=== PATIENT | male | born 1965 | race Caucasian/White ===

== ENCOUNTER 2017-04-22 05:50 | Inpatient (IN) | payer MEDICAID ==
[2017-04-21 12:10] LABS: HEMATOCRIT 50.3 % (42.0-54.0); HEMOGLOBIN 17.3 g/dL (13.5-17.5); MCH 32.9 pg (26.0-34.0); MCHC 34.4 g/dL (31.0-37.0); MCV 95.6 fL (80.0-100.0); MEAN PLATELET VOLUME 9.7 fL (7.4-10.4); RBC 5.26 10x6/uL (4.20-6.10); RDW 12.2 % (11.5-14.5); WBC 6.1 10x3/uL (4.8-10.8)
[2017-04-21 12:16] LABS: ANION GAP 10.3 mmol/L (8-16); CALCIUM 9.2 mg/dL (8.5-10.1); CREATININE - SERUM 1.8 mg/dL (0.6-1.3); POTASSIUM - SERUM 4.3 mmol/L (3.5-5.1)
[2017-04-22] VITALS (16 sets, daily range): BP systolic 112–149; BP diastolic 31–79; BMI 24.4; BMI 26.4
[~2017-04-22 05:50] MED LIST: AMBIEN10 MG PO; AVODART0.5 MG PO; CIALIS5 MG PO; FLOMAX0.4 MG PO; HYDROCODONE-APA1 TAB PO; NEXIUM40 MG PO; NOLVADEX10 M1 PO; PROSCAR5 MG PO; ULTRAM50 MG PO; ZOLOFT50 MG PO
--- NOTE | 2017-04-22 11:41 | NUR ---
TRANSFER OF CARE TO DARBY [facility]ALCON AT 1143
--- NOTE | 2017-04-22 11:44 | NUR ---
TAKING OVER PT FROM [facility] IN STABLE CONDITION
--- NOTE | 2017-04-22 17:25 | NUR ---
DR. MAYERS HERE IN TO SEE PATIENT.
--- NOTE | 2017-04-22 18:25 | NUR ---
PATIENT UP TO BATHROOM, DENIES ANY DIZZINESS, AND TOLERATED WELL. PATIENT CONSUMED SONIC MEAL WITHOUT ANY ISSUES.
--- NOTE | 2017-04-22 19:00 | NUR ---
PT AOX4, NO C/O PAIN AT THIS TIME. RIGHT NECK INCISION WITH NO OOZING OR BLEEDING PRESENT. SECURITY ENGINEER EQUAL, TONGUE MIDLINE. RESPIRATIONS EVEN AND UNLABORED. LUNG SOUNDS CLEAR THROUGHOUT. S1S2 HEARD, PERIPHERAL PULSES PRESENT. BOWEL SOUNDS ACTIVE IN ALL QUADRANTS. URINAL AT BEDSIDE. PT REPOSITIONS SELF INDEPENDENTLY WITH NO DIFFICULTY. VSS. DENIES NEEDS AT THIS TIME. CALL LIGHT AND BEDSIDE TABLE WITHIN PT REACH. CPOC.
--- NOTE | 2017-04-22 21:00 | NUR ---
FAMILY AT BEDSIDE, QUESTIONS ANSWERED. VSS, NO C/O PAIN AT THIS TIME. RIGHT NECK INCISION WITH NO OOZING OR BLEEDING. PT DENIES NEEDS AT THIS TIME. CALL LIGHT AND BEDSIDE TABLE WITHIN PT REACH. CPOC.
--- NOTE | 2017-04-22 23:00 | NUR ---
REASSESSMENT COMPLETE, SEE FLOWSHEET FOR ALL FINDINGS. NO ACUTE CHANGES NOTED AT THIS TIME. VSS, NO C/O PAIN. REPOSITIONS SELF INDEPENDENTLY. NO S/S OF DISTRESS NOTED. DENIES NEEDS. CALL LIGHT AND BEDSIDE TABLE WITHIN PT REACH. CPOC.
[2017-04-23] VITALS (8 sets, daily range): BP systolic 124–147; BP diastolic 59–88
--- NOTE | 2017-04-23 03:00 | NUR ---
REASSESSMENT COMPLETE, SEE FLOWSHEET FOR ALL FINDINGS. NO NEW CHANGES AT THIS TIME. PT RESTING QUIETLY WITH VSS, NO C/O PAIN. DENIES NEEDS. CALL LIGHT AND BEDSIDE TABLE WITHIN PT REACH. CPOC.
--- NOTE | 2017-04-23 11:00 | NUR ---
PIV DC'D. DISCHARGE PAPERWORK SIGNED. INSTUCTIONS GIVEN FOR DISCHARGE AND HOW TO CARE FOR WOUND. WALKED TO EXIT WITH FAMILY. DICHARGED HOME.
--- NOTE | 2017-04-26 10:55 | OP ---
PATIENT NAME: GONZALEZ DENNY MEDICAL RECORD: [id number] :69 LOCATION:[facility] ADMISSION DATE:04/22/17 SURGEON: BIJAL JUNG MD DATE OF OPERATION: 04/22/2017 PREOPERATIVE DIAGNOSES: 1. Severe degenerative disc disease at C5-C6 with right C6 radiculopathy. 2. Osteophytes at C5-C6. PROCEDURE: Anterior cervical discectomy with removal of osteophytes at C5-C6, placement of LDR artificial cervical disc at C5-C6. SURGEON: Bijal Jung MD DESCRIPTION AND TECHNIQUE: After induction of general endotracheal anesthesia, the patient was positioned supine on the operating table. Cervical spine was in a neutral position. The neck was prepped and draped in usual sterile fashion. A freer and Fluoro was used to localize the C5-C6 interspace. A transverse skin incision was carried out from the midline to the sternocleidomastoid muscle. The platysma was divided with Bovie cautery. Using blunt and sharp dissection with Metzenbaum scissors, I proceeded in the avascular plane medial to the carotid sheath. The C5-C6 interspace was confirmed with fluoroscopic x-ray and spinal needle. A self-retaining retractor was placed deep to the longus colli muscles. Lenox distracting pins were placed at the bodies of C5 and C6. Flow was confirmed with fluoroscopic x-ray. Osteophytes were removed anteriorly with Adson rongeurs. Following this, the disc space was incised under distraction. Disc material was removed with curettes and pituitary rongeurs. The posterior longitudinal ligament was removed with Cloward rongeurs. The osteophytes were drilled away posteriorly in the posterior third of the disc space. Foraminotomy was carried out on both sides with #2 Cloward. The posterior longitudinal ligament was removed. The dura was decompressed well. Meticulous hemostasis was maintained throughout the wound. Appropriate sized LDR artificial disc was placed in the disc space under distraction. The receiver stocker was released from the artificial disc. Good position of the hardware was confirmed on fluoroscopic x-ray. Meticulous hemostasis was maintained throughout the wound. The retractors were removed. The platysma and subdermal layer were closed with interrupted 3-0 Vicryl suture. The skin was closed with Steri-Strips and benzoin. A sterile dressing was applied to the wound. The patient was awakened in good condition and taken to recovery. All counts were reported as correct. Estimated blood loss was minimal. TRANSINT:[id number] Voice Confirmation ID: [id number] DOCUMENT ID: [id number] BIJAL JUNG MD at 1055 CC: [id number] DICTATION DATE: 04/22/17 1411 GRINDER OPERATOR EXTERNAL TOOL: 04/22/17 1428 DIS IN 04/23/17 [place] [id number]
--- NOTE | 2017-05-31 13:26 | DS ---
PATIENT:GONZALEZ DENNY :69 MEDICAL RECORD: [id number] DISCHARGE SUMMARY ADMISSION DATE: 04/22/17 DISCHARGE DATE: 04/23/17 HOSPITAL COURSE: The patient was admitted on the day of surgery for artificial cervical disc at C5-C6. He tolerated the procedure well, was observed overnight and discharged home on the following morning on a regular diet with hydrocodone p.r.n. for pain. ACTIVITY: Ad-angel. TRANSINT:[id number] Voice Confirmation ID: [id number] DOCUMENT ID: [id number] BIJAL MAYERS MD at 1326 CC: [id number] DICTATION DATE: 05/24/17 1724 TAILINGS WORKER: 05/25/17 1149 DIS IN 04/23/17 [place] [id number] [place] [id number]
== END 2017-04-23 11:00 | disposition home or self-care (01) | DRG 518 ==
LOC: D.OPS 05:50 → D.PAN 07:30 → D.OPS 07:30 → D.CVICU 11:26 → D.OPS 12:18 → D.CVICU 12:18
PROVIDERS: Anesthesiology; ADMIT Neurological Surgery
PROC: 0RR30JZ Replacement of Cervical Vertebral Disc with Synthetic Substitute, Open Approach (ICD-10-PCS; principal; 2017-04-22 07:30)
DX: M50.122 Cervical disc disorder at C5-C6 level with radiculopathy (principal); E11.9 Type 2 diabetes mellitus without complications; M25.78 Osteophyte, vertebrae; K21.9 Gastro-esophageal reflux disease without esophagitis; I49.9 Cardiac arrhythmia, unspecified; G47.30 Sleep apnea, unspecified

== ENCOUNTER → 2018-05-03 11:21 | Outpatient (CLI) | payer MEDICAID ==
[2017-04-22 12:11] VITALS: BMI 26.4
== END | disposition home or self-care (01) ==
LOC: D.MRI 11:21
DX: M54.12 Radiculopathy, cervical region (principal)